=== PATIENT | male | born 1965 | race Caucasian/White ===

== ENCOUNTER 2024-12-11 00:18 | Emergency (ER) | payer OTHER ==
[~2024-12-11] VITALS: Ht 172.7 cm; Wt 105.0 kg
[2024-12-11 00:23] VITALS: BP 174/93; TEMP 98.4
[2024-12-11] MEDS: bacitracin 15gm ointment TP ONE (01:03)
[2024-12-11] MEDS: TETanus/Pertussis (Acell)/Diphther VAC/PF (Tdap-Adult) 0.5ml syringe IMVAC ONE (01:03)
[2024-12-11 01:12] VITALS: PULSE 101; RESP 16; O2SAT 99
== END 2024-12-11 01:14 | disposition home or self-care (01) ==
LOC: ER 00:21
DX: Z00.8 Encounter for other general examination (principal)
CPT/HCPCS: 99283; J7030; A6449